=== PATIENT | male | born 1985 | race Caucasian/White ===

== ENCOUNTER 2024-09-30 08:41 | Emergency (ER) | payer SELFPAY ==
[~2024-09-30] VITALS: Ht 185.4 cm; Wt 95.3 kg
[2024-09-30 08:42] VITALS: TEMP 98
[2024-09-30 10:00] LABS: BASOPHILS # (AUTO) 0.1 (0.0-0.1); BASOPHILS % 0.4 % (0.0-1.0); EOSINOPHILS # (AUTO) 0.1 (0.0-0.4); EOSINOPHILS % 0.6 % (0.0-6.0); HEMATOCRIT 42.2 % (38.2-49.6); MEAN CORPUSCULAR HEMOGLOBIN 31.4 pg (28-32); MEAN CORPUSCULAR HGB CONC 33.2 g/dL (31-35); MEAN CORPUSCULAR VOLUME 94.6 fL (81-99); MONOCYTES # (AUTO) 0.8 (0.2-0.8); MONOCYTES % 7.1 % (4.4-11.3); NEUTROPHILS # (AUTO) 8.7 (2.1-6.9); NEUTROPHILS % 74.6 % (38.7-80.0); PLATELET COUNT 228 x10e3/uL (140-360); RED BLOOD COUNT 4.46 x10e6/uL (4.3-5.7); RED CELL DISTRIBUTION WIDTH 13.2 % (11.7-14.4); WHITE BLOOD COUNT 11.67 x10e3/uL (4.8-10.8)
[2024-09-30] MEDS ORDERED: IOPAMIDOL 370 MG/ML 100 ML INFUS..BTL INJ ONE (10:15)
[2024-09-30 10:19] LABS: ALBUMIN 3.8 g/dL (3.5-5.0); ALBUMIN/GLOBULIN RATIO 1.3 (0.8-2.0); ALKALINE PHOSPHATASE 74 IU/L (40-150); ANION GAP 13.5 mmol/L (8-16); BILIRUBIN,TOTAL 0.2 mg/dL (0.2-1.2); BLOOD UREA NITROGEN 17 mg/dL (7-26); BUN/CREATININE RATIO 21 (6-25); CALCIUM 8.9 mg/dL (8.4-10.2); CARBON DIOXIDE 22 mmol/L (22-29); CHLORIDE 109 mmol/L (98-107); CREATININE, SERUM 0.82 mg/dL (0.72-1.25); EST GLOMERULAR FILTRATION RATE 116 ML/MIN (>=60); GLUCOSE 86 mg/dL (74-118); POTASSIUM 4.5 mmol/L (3.5-5.1); SODIUM 140 mmol/L (136-145); TOTAL PROTEIN 6.8 g/dL (6.5-8.1)
[2024-09-30 10:20] LABS: ALANINE AMINOTRANSFERASE < 6 IU/L (0-55)
[2024-09-30 10:37] LABS: INR 0.93
[2024-09-30 10:38] LABS: PARTIAL THROMBOPLASTIN TIME 28.1 seconds (23.8-35.5)
[2024-09-30 11:29] VITALS: PULSE 74; RESP 16; O2SAT 99
[2024-09-30] MEDS: SODIUM CHLORIDE 0.9% 1000ML 1,000 ML IV ONE (11:46)
[2024-09-30] MEDS: KETOROLAC TROMETHAMINE 30 MG/ML VIAL IV STA (11:46)
== END 2024-09-30 13:03 | disposition short-term general hospital (02) ==
LOC: ER 08:46
DX: K02.9 Dental caries, unspecified (principal); L02.01 Cutaneous abscess of face
CPT/HCPCS: 36415; 70487; 80053; 85025; 85610; 85730; 99284; J1885; J7030; Q9967